=== PATIENT | male | born 1945 | race Caucasian/White ===

== ENCOUNTER 2024-12-03 11:18 | Emergency (ER) | payer MEDICARE, OTHER, SELFPAY ==
--- NOTE | 2024-12-03 11:23 | ED_ITS ---
HPI - URI/Sore Throat General Chief Complaint: Upper Respiratory Infection Stated Complaint: Fever Time Seen by Provider: 12/03/24 11:22 Source: patient and family Mode of arrival: ambulatory Limitations: no limitations History of Present Illness HPI Narrative: [place] is a 79-year-old male patient presenting to the clinic today with complaints of a fever when he woke up this morning. states his fever was 101.8? F. She gave him Tylenol. In the clinic at this time he is 36.8? C. Denies any other symptoms other than the fever. Recently got back from a trip from [place]. States he did get a COVID booster vaccination yesterday. Related Data Home Medications ?Medication ?Instructions ?Recorded ?Confirmed ?Last Taken ?Type aspirin 81 mg tablet,delayed 81 mg PO DAILY 12/03/24 12/03/24 Unknown History release (Adult Low Dose Aspirin) atorvastatin 10 mg tablet 10 mg PO QPM 12/03/24 12/03/24 Unknown History fluoride (sodium) 1.1 % dental 1 applic dental BID 12/03/24 12/03/24 Unknown History paste (PreviDent 5000 Dry Mouth) gabapentin 300 mg capsule 300 mg PO Q8H 12/03/24 12/03/24 Unknown History omeprazole 40 mg capsule,delayed 40 mg PO DAILY 12/03/24 12/03/24 Unknown History release talazoparib 0.5 mg capsule 0.5 mg PO DAILY 12/03/24 12/03/24 Unknown History (Talzenna) Allergies Allergy/AdvReac Type Severity Reaction Status Date / Time sulfamethoxazole (From Allergy Mild rash Verified 12/03/24 11:31 Bactrim) trimethoprim (From Bactrim) Allergy Mild rash Verified 12/03/24 11:31 Review of Systems Review of Systems: Pertinent positives per HPI. Patient denies any rash, headache, visual changes, dizziness, cough, shortness of breath, chest pain, palpitations, nausea, vomiting, diarrhea, constipation, abdominal pain, or any urinary issues. PMFSH Comments At the time of my signature, I reviewed and agree with the nursing past medical, surgical, social, and family history. There is no relevant family history pertinent to the patient complaint. Exam Narrative: General: Well-developed, well nourished, in no apparent distress Head: Normocephalic, atraumatic Eyes: Pupils equally round and reactive to light bilaterally, EOM intact, sclera and conjunctive clear, no discharge, lids normal Ears: TMs intact and clear, ear canals clear, no drainage, grossly hearing normal. Nose: Nares patent, no discharge, no inflammation, no sinus tenderness. Mouth: Oral pharynx without lesions or masses, good dentition, MMM. Neck: Supple, trachea midline, no enlargement of anterior or posterior cervical nodes, no thyroid masses or goiter palpable. Cardio: Regular rate and rhythm, s1 and s2 normal, no murmur appreciated. Resp: Clear to auscultation bilaterally, no rhonchi, rales, wheezing or rubs Course Course Emergency Course: Portions of this record may have been created with voice recognition software. Level of Care: Express Care Visit Vital Signs Vital signs: Vital Signs Temperature 36.8 C 12/03/24 11:32 Pulse Rate 79 12/03/24 11:32 Respiratory Rate 20 12/03/24 11:32 Blood Pressure 138/50 L 12/03/24 11:32 Pulse Oximetry 97 12/03/24 11:32 Oxygen Delivery Room Air 12/03/24 11:32 Temperature 36.8 C 12/03/24 11:32 Pulse Rate 79 12/03/24 11:32 Respiratory Rate 20 12/03/24 11:32 Blood Pressure 138/50 L 12/03/24 11:32 Pulse Oximetry 97 12/03/24 11:32 Oxygen Delivery Room Air 12/03/24 11:32 Vital signs reviewed MDM - URI/Sore Throat MDM Narrative Medical decision making narrative: At the time of visit patient is resting comfortably on the exam table. Patient appears to be nontoxic. Labs: COVID and influenza testing were negative in the clinic today. Plan: I suspect patient likely has fever from recent COVID booster immunization. He denies any other symptoms other than the fever at this time. Supportive measures were discussed with the patient and they voiced understanding discharge instructions and agrees to treatment plan. Return precautions reviewed Differential Diagnosis Differential diagnosis: Likely upper respiratory infection, otitis media, sinusitis, viral infection, bronchitis, influenza, pharyngitis and other (Recent immunization) Lab Data Labs: Lab Results 12/03/24 Range/Units 11:53 POC Influenza A Ag Negative (Negative) POC Influenza B Ag Negative (Negative) POC SARS CoV-2 Ag Negative (Negative) Discharge Plan Discharge Clinical Impression: Fever after COVID-19 vaccination Patient Disposition: Home, Self-Care Condition: Stable Instructions: Antibiotic Form, Fever in Adults (ED) Additional Instructions: COVID and influenza testing was negative in the clinic today. I suspect he likely has fever due to COVID immunization Increase fluids and stay well hydrated Tylenol/motrin for pain/fever Flonase and OTC antihistamines as directed Vicks vapor rub to open sinuses Sinus rinses for congestion Cepacol spray, cough drops, throat lozenges, warm tea with honey/lemon, gargle salt water to soothe throat BRAT diet for diarrhea Clear liquids x 24 hours then advance as tolerated for nausea/vomiting Go to the ED if you develop a worsening in your condition- high fever not controlled by Tylenol or Motrin, dehydration, weakness, lethargy, shortness of breath, or chest pain. Follow up with your PCP in 3-5 days if symptoms persist. Patient Language: Polish Prescriptions: No Action atorvastatin 10 mg tablet 10 mg PO QPM fluoride (sodium) [PreviDent 5000 Dry Mouth] 1.1 % paste 1 applic dental BID gabapentin 300 mg capsule 300 mg PO Q8H omeprazole 40 mg capsule,delayed release(DR/EC) 40 mg PO DAILY aspirin [Adult Low Dose Aspirin] 81 mg tablet,delayed release (DR/EC) 81 mg PO DAILY Talzenna 0.5 mg capsule 0.5 mg PO DAILY Follow-up/Referrals: UNKNOWN,DOCTOR [Non-Staff] - Time of Disposition: 11:56 Quality NIHSS Nursing Documentation ED NIHSS nursing documentation: reviewed/agree
[2024-12-03 11:32] VITALS: BP 138/50; PULSE 79; RESP 20; TEMP 36.8; O2SAT 97
[2024-12-03 11:55] LABS: EDCOVIDSCREEN Negative (Negative); EDINFLUASCREEN Negative (Negative); EDINFLUBSCREEN Negative (Negative)
== END 2024-12-03 12:01 | disposition home or self-care (01) ==
PROVIDERS: Emergency Provider Nurse Practitioner Family
DX: R50.83 Postvaccination fever (principal); T50.B95A Adverse effect of other viral vaccines, initial encounter; Z20.822 Contact with and (suspected) exposure to COVID-19; E78.00 Pure hypercholesterolemia, unspecified; K21.9 Gastro-esophageal reflux disease without esophagitis; N31.9 Neuromuscular dysfunction of bladder, unspecified; G62.9 Polyneuropathy, unspecified; Z79.82 Long term (current) use of aspirin; Z85.828 Personal history of other malignant neoplasm of skin; Z85.118 Personal history of other malignant neoplasm of bronchus and lung
CPT/HCPCS: 87426; 87804; 99212; G0463